=== PATIENT | male | born 1995 | race Caucasian/White ===

== ENCOUNTER 2017-03-08 11:08 | Day surgery (SDC) | payer OTHER ==
[~2017-03-08] VITALS: Ht 190.5 cm; Wt 102.1 kg
[2017-03-08] MEDS ORDERED: LR 1,000 ML IV SCH ×2 (11:15→13:15)
[2017-03-08] MEDS ORDERED: ONDANSETRON 4MG/2ML VIAL (J2405) As Ordered ONE (11:32)
[2017-03-08] MEDS ORDERED: LIDOCAINE W/EPINEPHRINE 1% 20ML VIAL As Ordered ONE (11:32)
[2017-03-08] MEDS ORDERED: LIDOCAINE 2% INJ 100 MG/5 ML SDV (FOR ANES.) As Ordered ONE (11:32)
[2017-03-08] MEDS ORDERED: ROCURONIUM BROMIDE 50 MG/5 ML VIAL/SYRINGE As Ordered ONE (11:32)
[2017-03-08] MEDS ORDERED: BUPIVACAINE HCL 0.5% 30 ML VIAL As Ordered ONE (11:32)
[2017-03-08] MEDS ORDERED: PROPOFOL 200 MG/20 ML VIAL As Ordered ONE ×2 (11:32→12:28)
[2017-03-08] MEDS ORDERED: MIDAZOLAM INJ 2 MG/2 ML VIAL (J2250) As Ordered ONE (11:33)
[2017-03-08] MEDS ORDERED: fentaNYL 100 MCG/2 ML INJECTION (J3010) As Ordered ONE (11:33)
--- NOTE | 2017-03-08 12:40 | RO ---
DATE OF PROCEDURE: 03/08/2017 PREOPERATIVE DIAGNOSIS: Chronic tonsillitis. POSTOPERATIVE DIAGNOSIS: Chronic tonsillitis. OPERATIVE PROCEDURE: Tonsillectomy. SURGEON: Dr. Carlos Cheney MOVIE WRITER: ANESTHESIA: Under general anesthesia with the patient intubated, the patient was prepped and draped in the usual manner. A Davila-Addy mouth gag was inserted. The tonsil area was infiltrated with lidocaine and infiltrated with Marcaine. Using a Coblator setting of 6 and 4, the tonsil was dissected free from its bed on both sides. The base and apex and other areas were cauterized using a setting of 4 on the Coblator. No blood loss. A nasogastric tube was passed to suction the upper esophagus. The patient tolerated the procedure well, was extubated and transferred to the recovery room in excellent condition.
[2017-03-08] MEDS ORDERED: HYDROcodone/APAP LIQUID 7.5-325MG 15ML UDC (LORTAB ELIXIR) As Ordered ONE (12:53)
[2017-03-08] MEDS ORDERED: HYDROcodone/APAP LIQUID 7.5-325MG 15ML UDC (LORTAB ELIXIR) PO ONE (13:15)
[2017-03-08] MEDS ORDERED: MEPERIDINE INJ 25 MG/ML VIAL (J2175) IV PRN (13:15)
[2017-03-08] MEDS ORDERED: ONDANSETRON 4MG/2ML VIAL (J2405) IV PRN (13:15)
[2017-03-08] MEDS: fentaNYL 100 MCG/2 ML INJECTION (J3010) IV PRN ×3 (13:20→13:36)
[2017-03-08 14:15] VITALS: BP 136/82
== END 2017-03-08 14:21 | disposition home or self-care (01) ==
LOC: M SDC 11:08
PROVIDERS: ATTEND Otolaryngology
DX: J35.01 Chronic tonsillitis (principal); R06.83 Snoring; Z88.0 Allergy status to penicillin; F17.220 Nicotine dependence, chewing tobacco, uncomplicated
CPT/HCPCS: 42826; 88302; J2250; J2405; J3010